=== PATIENT | female | born 1995 | race Caucasian/White ===

== ENCOUNTER 2016-11-21 23:25 | Outpatient (CLI) | payer MEDICAID, OTHER ==
[~2016-11-21] VITALS: Ht 172.7 cm; Wt 79.5 kg
[~2016-11-21 23:25] MED LIST: CALC-600 PO; FERR-18 PO; PREN-39 PO
[2016-11-21 23:37] VITALS: BP 135/88; PULSE 56; RESP 18
[2016-11-21 23:50] VITALS: Ht 172.7 cm; Wt 79.5 kg
--- NOTE | 2016-11-22 01:34 | RADRPT ---
PROCEDURE: ULTRASOUND BIOPHYSICAL PROFILE CLINICAL INDICATION: 21-year-old female for viability. TECHNIQUE: Multiple sonographic images were obtained in order to perform a biophysical profile The images were reviewed on a PACS workstation. COMPARISON: None. FINDINGS: There is a single viable intrauterine gestation. There is a vertex presentation. Cardiac activity i s present at 131 beats per minute. The placenta is anterior. The results of the biophysical profile are as follows: breathing movement = 2/2 Gross body movement = 2/2 tone = 2/2 Qualitative amniotic fluid volume = 2/2 Amniotic fluid index equals 13.5 cm. This yields a biophysical profile score of 8/8. IMPRESSION: Biophysical profile score is 8/8. .Pritesh Fuller MD, Date Time Electronically viewed and signed by .Pritesh Fuller MD, MD on 11/22/2016 01:34 .M/
--- NOTE | 2016-11-22 04:09 | PN ---
Triage Information Date/Time 21-year-old with IUP at 40 weeks and 2 days with care with Dr. Hay jessica presented with complaint of uterine contractions. GAVI November 20 x 10 weeks ultrasound. She denies any leaking of fluid, vaginal bleeding or decreased movement. Weeks of Gestation 40 weeks and 2 days : 4 Para: 2 Diabetes: none Hypertention: none Objective Vital Signs Date Time Temp Pulse Resp B/P Pulse Ox O2 Delivery O2 Flow Rate FiO2 11/21/16 23:37 97.8 56 18 135/88 Room Air Exam General appearance: Alert and oriented 4 patient does not appear to be in any acute distress. Abdomen: Soft, nontender, gravid, fundal height consistent with gestational age. NST: Category 1 Sterile vaginal examination: 0.5/0/-4 Patient had been observed and ambulated after couple hours no cervical change noted. Results/Medications Imaging Results PROCEDURE: ULTRASOUND BIOPHYSICAL PROFILE CLINICAL INDICATION: 21-year-old female for viability. TECHNIQUE: Multiple sonographic images were obtained in order to perform a biophysical profile The images were reviewed on a PACS workstation. COMPARISON: None. FINDINGS: There is a single viable intrauterine gestation. There is a vertex presentation. Cardiac activity is present at 131 beats per minute. The placenta is anterior. The results of the biophysical profile are as follows: breathing movement = 2/2 Gross body movement = 2/2 tone = 2/2 Qualitative amniotic fluid volume = 2/2 Amniotic fluid index equals 13.5 cm. This yields a biophysical profile score of 8/8. IMPRESSION: Biophysical profile score is 8/8. Assessment/Plan IUP at 40 weeks and 2 days Postdates testing reassuring Unfavorable cervix False labor pain Patient will be discharged home Labor precaution and kick count discussed Follow-up with her OB clinic in 1-2 days recommend with the plan of delivery at 41 weeks Understand that needs to have testing twice a week until 41 weeks Patient verbalized understanding. All questions were answered. AICHA BEYER MD Nov 22, 2016 04:09
--- NOTE | 2016-11-22 05:25 | TRIAGE ---
OB Triage Datetime Report Generated by CPN: 11/22/2016 05:25 Datetime: 11/22/2016 04:09 Labor Evaluation Frequency: 8; OCCASSIONAL Monitor Mode: External Duration (sec)2399: 60-80 Quality: Mild Resting Tone [place]: Relaxed Interventions: Side to Side Heart Rate FHR Baseline Rate: 115 Monitor Mode: External US FHR Baseline Changes: No Baseline Change Variability: Moderate 6-25 bpm Accelerations: 15X15 Decelerations: None Category: Category I Datetime: 11/22/2016 04:04 Pain Assessment Pain Scale: 0 Pain Presence: None/Denies Pain Type: N/A Pain Goal: 0 Datetime: 11/22/2016 03:14 Vaginal Exam Dilatation (cms): 0.5 Effacement (%): 20 Station: -4 Exam By: MG Cervix, Position: Posterior Datetime: 11/22/2016 02:30 Pain Assessment Pain Scale: 5 Pain Presence: Intermittent Pain Type: Contraction Pain Location: Abdomen Pain Goal: 5 Pain Assessment Comments: PT STATES THAT CONTRACTION FREQUENCY AND PAIN LEVEL HAS DECREASED SINCE WHEN SHE WAS FIRST ADMITTED. Datetime: 11/22/2016 02:06 Comments: PT CONTINUES TO AMBULATE IN HALLWAY; APPEARS STABLE. Datetime: 11/22/2016 01:06 Labor Evaluation Frequency: 3-7.5 Monitor Mode: External Duration (sec)2399: 60-120 Quality: Mild Pattern: Normal: <= 5 Contractions in 10 Minutes Resting Tone [place]: Relaxed Heart Rate FHR Baseline Rate: 115 Monitor Mode: External US FHR Baseline Changes: No Baseline Change Variability: Moderate 6-25 bpm Accelerations: 15X15 Decelerations: None Category: Category I Comments: Periods of loss of FHR contact d/t pt self-repositioning; bedside ultrasound during this interval. Datetime: 11/22/2016 00:11 Pain Assessment Pain Scale: 4 Pain Presence: Intermittent Pain Type: Contraction Pain Location: Abdomen Pain Goal: 4 Pain Relief Measures: Comfort Measures Datetime: 11/22/2016 00:06 Labor Evaluation Frequency: 4-7.5 Monitor Mode: External Duration (sec)2399: 60-120 Quality: Mild Pattern: Normal: <= 5 Contractions in 10 Minutes Resting Tone [place]: Relaxed Heart Rate FHR Baseline Rate: 115 Monitor Mode: External US FHR Baseline Changes: No Baseline Change Variability: Moderate 6-25 bpm Accelerations: 15X15 Decelerations: None Category: Category I Datetime: 11/21/2016 23:57 Vaginal Exam Dilatation (cms): 0.5 Effacement (%): 0 Station: -4 Exam By: MG Cervix, Position: Posterior Datetime: 11/21/2016 23:46 EGA: 40.1 Datetime: 11/21/2016 23:37 Temperature Route: Oral Pain Assessment Pain Scale: 8 Pain Presence: Intermittent Pain Type: Contraction Pain Location: Abdomen Pain Goal: 4 Pain Relief Measures: Comfort Measures Datetime: 11/21/2016 23:36 Stage of : OB Triage Datetime: 11/21/2016 23:35 Assessment Type: Triage Maternal Assessment Level of Consciousness: Fully Conscious DTR's/Clonus: DTRs 2+; No Clonus Headache: Denies Blurred Vision: No Respiratory Effort: Unlabored; Regular Rhythm; Equal Expansion Breath Sounds, Left: Clear and Equal Breath Sounds, Right: Clear and Equal Nausea/Vomiting: Denies RUQ Epigastric Pain: Denies Facial Edema: None Fall Risk Assessment History of Falling: (0) No Secondary Diagnosis: (0) No Ambulatory Aid: (0) Bedrest/Nurse Assist IV Therapy: (0) No Gait: (0) Normal/Bedrest/Immobile Mental Status: (0) Oriented to Own Ability Fall Score: 0 Fall Risk Score Definition: No Risk: No action required Datetime: 11/21/2016 23:23 Time of Arrival: 11/21/2016 23:23 Arrived By: Wheelchair Arrived From: Emergency Dept Chief Complaint: UCs SINCE 11/21 @ 2200, Q10 MIN Movement: Present Contractions: Occasional Time Contractions Began: 11/21/2016 22:00 Contractions: q10min Rupture of Membranes: Denies Vaginal Bleeding: None Vaginal Discharge: Denies Recent Sexual Intercouse: Denies Abdominal Trauma: Not Applicable Patient Complaints: Contractions Additional Patient Complaints: ANEMIA PER RECORD Time Provider Notified: 11/22/2016 00:09 Provider Notified: MD LOPEZ Initial Plan: OBSERVATION; VE; RONN/BPP; PO HYDRATION; AMBULATE FOR 2 HOURS; AND REASSESS VE
== END 2016-11-22 04:39 | disposition home or self-care (01) ==
LOC: L-D 23:25 → OBT 23:25
PROVIDERS: ATTEND Specialist
DX: O48.0 Post-term pregnancy (principal); O47.1 False labor at or after 37 completed weeks of gestation; Z3A.40 40 weeks gestation of pregnancy
CPT/HCPCS: 76818

== ENCOUNTER 2016-11-22 15:00 | Inpatient (IN) | payer OTHER ==
[~2016-11-22] VITALS: Ht 172.7 cm; Wt 80.0 kg
[2016-11-22] MEDS ORDERED: LACTATED RINGER'S 1,000 ML IV PRN (15:30)
[2016-11-22] MEDS: LACTATED RINGER'S 1,000 ML IV SCH ×2 (15:52→22:50)
[2016-11-22 15:55] LABS: ADD SCAN DIFF NO
[2016-11-22 15:59] LABS: BASOPHILS % 0.2 % (0.0-2.0); EOSINOPHILS % 0.2 % (0.0-7.0); HEMATOCRIT 28.2 % (37.0-47.0); HEMOGLOBIN 9.1 g/dl (12.0-16.0); LYMPHOCYTES # 1.6 10^3/ul (0.8-2.9); LYMPHOCYTES % 26.2 % (15.0-51.0); MEAN CORPUSCULAR HEMOGLOBIN 26.1 pg (29.0-33.0); MEAN CORPUSCULAR HGB CONC 32.3 g/dl (32.0-37.0); MEAN CORPUSCULAR VOLUME 80.8 fl (82.0-101.0); MEAN PLATELET VOLUME 12.3 fl (7.4-10.4); MONOCYTE # 0.5 10^3/ul (0.3-0.9); MONOCYTES % 7.4 % (0.0-11.0); NEUTROPHILS % 65.7 % (39.0-77.0); PLATELET COUNT 149 10^3/UL (140-415); RED BLOOD COUNT 3.49 10^6/ul (4.20-5.40); RED CELL DISTRIBUTION WIDTH 19.3 % (11.5-14.5); WHITE BLOOD COUNT 6.1 10^3/ul (4.8-10.8)
[2016-11-22] MEDS ORDERED: OXYCODONE/ACETAMINOPHEN (5/325) TAB PO PRN (16:00)
[2016-11-22] MEDS ORDERED: LIDOCAINE 1% (MPF) 30 ML INJ INJ PRN (16:00)
[2016-11-22] MEDS ORDERED: ACETAMINOPHEN/CODEINE #3 TAB PO PRN (16:00)
[2016-11-22] MEDS ORDERED: BUTORPHANOL 2 MG INJ IV PRN (16:00)
[2016-11-22] MEDS ORDERED: CARBOPROST 250 MCG INJ IM PRN (16:00)
[2016-11-22] MEDS ORDERED: METHYLERGONOVINE 0.2 MG INJ IM PRN (16:00)
[2016-11-22] MEDS ORDERED: OXYTOCIN 30 UNITS/LR 500 ML IV PRN (16:00)
[2016-11-22] MEDS ORDERED: IBUPROFEN 600 MG TAB PO PRN (16:00)
[2016-11-22] MEDS ORDERED: OXYTOCIN 30 UNITS/LR 500 ML IV SCH ×2 (16:00)
[2016-11-22] MEDS ORDERED: MISOPROSTOL 200 MCG TAB PR PRN (16:00)
[2016-11-22] MEDS ORDERED: OXYCODONE/ASPIRIN (4.88/325) TAB PO PRN (16:00)
[2016-11-22 16:04] VITALS: Ht 172.7 cm; Wt 80.0 kg
[2016-11-22 16:05] VITALS: BP 131/85; PULSE 71; RESP 20
[2016-11-22 16:18] LABS: INR 0.91; PROTIME 12.2 Sec (12.2-14.2)
[2016-11-22 16:19] LABS: PARTIAL THROMBOPLASTIN TIME 28.7 Sec (25.0-35.0)
[2016-11-22] MEDS ORDERED: DINOPROSTONE 10 MG VAG SUPP VAG ONE (21:00)
[2016-11-22] MEDS ORDERED: hydrALAzine 20 MG INJ IV PRN (22:30)
[2016-11-22 22:57] LABS: ADD SCAN DIFF NO
[2016-11-22 23:01] LABS: BASOPHILS % 0.2 % (0.0-2.0); EOSINOPHILS % 0.3 % (0.0-7.0); HEMATOCRIT 30.1 % (37.0-47.0); HEMOGLOBIN 9.4 g/dl (12.0-16.0); LYMPHOCYTES # 2.1 10^3/ul (0.8-2.9); LYMPHOCYTES % 35.8 % (15.0-51.0); MEAN CORPUSCULAR HEMOGLOBIN 25.7 pg (29.0-33.0); MEAN CORPUSCULAR HGB CONC 31.2 g/dl (32.0-37.0); MEAN CORPUSCULAR VOLUME 82.2 fl (82.0-101.0); MEAN PLATELET VOLUME 11.8 fl (7.4-10.4); MONOCYTE # 0.6 10^3/ul (0.3-0.9); MONOCYTES % 9.6 % (0.0-11.0); NEUTROPHIL # 3.1 10^3/ul (1.6-7.5); NEUTROPHILS % 53.8 % (39.0-77.0); PLATELET COUNT 136 10^3/UL (140-415); RED BLOOD COUNT 3.66 10^6/ul (4.20-5.40); RED CELL DISTRIBUTION WIDTH 19.3 % (11.5-14.5); WHITE BLOOD COUNT 5.7 10^3/ul (4.8-10.8)
[2016-11-22 23:03] LABS: ADD UMIC YES; URINE BILIRUBIN (Dip) NEGATIVE (NEGATIVE); URINE BLOOD (Dip) TRACE (NEGATIVE); URINE COLOR LT. YELLOW (YELLOW); URINE GLUCOSE (Dip) NEGATIVE (NEGATIVE); URINE KETONES (Dip) TRACE (NEGATIVE); URINE LEUKOCYTE ESTERASE (Dip) 3+ (NEGATIVE); URINE NITRITE (Dip) POSITIVE (NEGATIVE); URINE TOTAL PROTEIN (Dip) TRACE (NEGATIVE); URINE UROBILINOGEN (Dip) 0.2 E.U./dL (0.1-1.0)
[2016-11-22 23:13] LABS: BACTERIA,URINE MANY; SQUAMOUS EPITHELIAL CELL,UR FEW; URINE RBCS 0-2 /HPF (0)
[2016-11-22 23:16] LABS: INR 0.94; PARTIAL THROMBOPLASTIN TIME 29.5 Sec (25.0-35.0); PROTIME 12.6 Sec (12.2-14.2)
[2016-11-22 23:24] LABS: ALBUMIN 3.8 g/dl (3.3-4.9); ALBUMIN/GLOBULIN RATIO 1.26; BILIRUBIN,INDIRECT 0.2 mg/dl (0-1.1); BILIRUBIN,TOTAL 0.2 mg/dl (0.2-1.3); CREATININE 0.75 mg/dl (0.44-1.00); POTASSIUM 3.9 mmol/L (3.5-5.1); TOTAL PROTEIN 6.8 g/dl (6.1-8.1)
[2016-11-22] MEDS ORDERED: FENTAnyl 2MCG/ML-ROPIV 0.2% 100 ML ONE (23:38)
[2016-11-23] VITALS (7 sets, daily range): BP systolic 114–136; BP diastolic 65–93; PULSE 50–74; RESP 15–20
[2016-11-23] MEDS ORDERED: PROCHLORPERAZINE 10 MG INJ IV PRN
[2016-11-23] MEDS ORDERED: KETOROLAC 30 MG INJ IV PRN
[2016-11-23] MEDS ORDERED: ONDANSETRON 4 MG INJ IV PRN
[2016-11-23] MEDS ORDERED: HYDROmorphONE 1 MG/ML SYG IV PRN ×2
[2016-11-23] MEDS ORDERED: FENTAnyl 2MCG/ML-ROPIV 0.2% 100 ML BAG EPI SCH
[2016-11-23] MEDS ORDERED: DIPHENHYDRAMINE 50 MG INJ IV PRN
[2016-11-23] MEDS ORDERED: NALOXONE (0.4 MG/ML) INJ IV PRN
--- NOTE | 2016-11-23 00:07 | HP ---
Date/Time of Note Date/Time of Note DATE: 11/22/16 TIME: 23:57 OB - History Hx of Present Free Text/Dictation 21 y.o A1(iab) at 40w 2d ,here for induction of labor using cervidil. she was here on 11/21/16 with uterine contractions but sent home . VE on admission 1/60%/-3 EFM mod accelerations course was unevenful. Chief Complaint: induction of labor Last Menstrual Period: Feb 04, 2016 Estimated Due Date: Nov 20, 2016 : 4 Para: 2 Spontaneous : 0 Therapeutic : 1 Care: Good Care Ultrasounds: Normal mid trimester US Obstetrical Complications: None Medical Complications: None Past Family/Social History * Past Medical, Surgical, Family and Obstetric Histories reviewed from chart. Blood Type: A+ Rubella: immune RPR/VDRL: Negative GBS Status: Negative HBsAG: Negative OB Admission Exam Vital Signs Vital Signs Vital Signs Date Time Temp Pulse Resp B/P Pulse Ox O2 Delivery O2 Flow Rate FiO2 11/22/16 16:05 98.2 71 20 131/85 Room Air Physical Exam HEENT: WNL Heart: Rhythm Normal Lungs: Clear, Equal Abdomen: WNL Extremities: Normal Reflexes: Normal Cervical Dilatation: 1cm Effacement: Other (60% -3) Station: -3 Membranes: Intact Amniotic Fluid: Unevaluable Heart Rate: 120's Accelerations: Accelerations Present Decelerations: No Decelerations Varibility: Moderate Contractions on Admission: < 5 Minutes Apart Intensity: Mild Last 72 hours Lab Results CBC & BMP 11/22/16 15:35 11/22/16 22:29 Liver Function Test 11/22/16 22:29 Alanine Aminotransferase (ALT/SGPT) 25 Albumin 3.8 Alkaline Phosphatase 168 H Aspartate Amino Transf (AST/SGOT) 21 Direct Bilirubin 0.00 Total Protein 6.8 OB Assessment/Plan Reason for admission: induction of labor Plan: Induction Induction Method: per Misoprostol Protocol WINSTON FROST MD Nov 23, 2016 00:07
--- NOTE | 2016-11-23 00:10 | QN ---
Documentation Comment delayed insertion of cervidil at 2100 reson ? VE 6cm membrane bulging cervidil was removed 0 still having frequent uc 2-3min WINSTON Moreno MD Nov 23, 2016 00:10
--- NOTE | 2016-11-23 00:59 | LDN ---
Date/Time of Note Date/Time of Note DATE: 11/23/16 TIME: 00:56 Delivery Summary 21 YO G4 P 2 with post date IUP who was admitted for IOL progressed very fast to 10 cm. she pushed 2 times. s/p of viable male infant. Placenta Delivered: Spontaneously Meconium: none Episiotomy: No Perineal laceration: 0 Laceration repair: no laceration Anesthesia type: Epidural Sponge & Needle done & correct: Yes All needle counts correct: Yes Any foreign bodies felt in the: No Problems: Delivery Information Sex Sex: male Apgars 1 Minute: 9 5 Minute: 9 Suctioning Nose & mouth suctioned at sia: No Delee suction performed: No Umbilical Cord Umbilical cord with: 3 Vessels Cord presentations: nuchal cord Nuchal cord present X: 1 Cord Blood was obtained: Yes Mother & Baby Disposition Disposition Mom & Baby to Maternity; Good: Yes TONY LOPEZ MD Nov 23, 2016 00:59
[2016-11-23] MEDS ORDERED: WITCH HAZEL/GLYCERIN PAD PR PRN (01:00)
[2016-11-23] MEDS ORDERED: SENNA/DOCUSATE NA (8.6MG/50MG) TAB PO PRN (01:00)
[2016-11-23] MEDS ORDERED: NA PHOSPHATE/BIPHOS 133 ML ENEMA PR PRN (01:00)
[2016-11-23] MEDS ORDERED: LANOLIN 7 GM TUBE TOP PRN (01:00)
[2016-11-23] MEDS ORDERED: MISOPROSTOL 200 MCG TAB PR PRN (01:00)
[2016-11-23] MEDS ORDERED: MAGNESIUM HYDROXIDE 30ML CUP PO PRN (01:00)
[2016-11-23] MEDS ORDERED: OXYTOCIN 30 UNITS/LR 500 ML IV PRN (01:00)
[2016-11-23] MEDS ORDERED: CARBOPROST 250 MCG INJ IM PRN (01:00)
[2016-11-23] MEDS ORDERED: DIBUCAINE 1% 30 GM OINT PR PRN (01:00)
[2016-11-23] MEDS ORDERED: BENZOCAINE 20% 56 ML SPRAY TOP PRN (01:00)
[2016-11-23] MEDS: LACTATED RINGER'S 1,000 ML IV* SCH ×2 (05:51→19:25)
[2016-11-23] MEDS ORDERED: SENNA/DOCUSATE NA (8.6MG/50MG) TAB PO SCH (09:00)
[2016-11-23] MEDS: IBUPROFEN 600 MG TAB PO SCH ×4 (09:29→23:49)
[2016-11-24] MEDS ORDERED: ONDANSETRON 4 MG INJ IV PRN
[2016-11-24] MEDS ORDERED: ONDANSETRON 4 MG TAB PO PRN
[2016-11-24] MEDS ORDERED: ACETAMINOPHEN/CODEINE #3 TAB PO PRN ×2
[2016-11-24] MEDS ORDERED: DIPHENHYDRAMINE 50 MG INJ IV PRN
[2016-11-24] MEDS ORDERED: DIPHENHYDRAMINE 25 MG CAP PO PRN
[2016-11-24] MEDS: LACTATED RINGER'S 1,000 ML IV* SCH (00:59)
[2016-11-24 03:40] VITALS: BP 109/73; PULSE 69; RESP 19
[2016-11-24] MEDS: IBUPROFEN 600 MG TAB PO SCH ×4 (05:45→23:57)
[2016-11-24 08:13] LABS: ADD SCAN DIFF NO
[2016-11-24 08:14] VITALS: BP 113/84; PULSE 66; RESP 18
[2016-11-24 08:17] LABS: BASOPHILS % 0.4 % (0.0-2.0); EOSINOPHILS # 0.1 10^3/ul (0.0-0.5); EOSINOPHILS % 1.2 % (0.0-7.0); HEMATOCRIT 26.2 % (37.0-47.0); HEMOGLOBIN 7.8 g/dl (12.0-16.0); LYMPHOCYTES % 34.6 % (15.0-51.0); MEAN CORPUSCULAR HEMOGLOBIN 24.9 pg (29.0-33.0); MEAN CORPUSCULAR HGB CONC 29.8 g/dl (32.0-37.0); MEAN CORPUSCULAR VOLUME 83.7 fl (82.0-101.0); MEAN PLATELET VOLUME 12.2 fl (7.4-10.4); MONOCYTE # 0.4 10^3/ul (0.3-0.9); MONOCYTES % 7.7 % (0.0-11.0); NEUTROPHIL # 3.2 10^3/ul (1.6-7.5); NEUTROPHILS % 55.7 % (39.0-77.0); PLATELET COUNT 132 10^3/UL (140-415); RED BLOOD COUNT 3.13 10^6/ul (4.20-5.40); RED CELL DISTRIBUTION WIDTH 19.7 % (11.5-14.5); WHITE BLOOD COUNT 5.7 10^3/ul (4.8-10.8)
--- NOTE | 2016-11-24 15:41 | PN ---
Date/Time of Note Date/Time of Note DATE: 11/24/16 TIME: 15:39 OB Subjective Subjective Subjective day 1 status post OB Objective Objective Objective Patient has no complaints Ambulating and tolerating regular diet well HEENT: WNL Heart: Rhythm Normal Lungs: Clear, Equal Abdomen: WNL Extremities: Normal Reflexes: Normal OB Assessment/Plan Other Assessment: day 1 status post Patient stable and afebrile Other plan: Continue with present management Repeat CBC in VONDA Camacho MD Nov 24, 2016 15:41
[2016-11-24 16:01] VITALS: BP 126/86; PULSE 83; RESP 18
[2016-11-24 19:35] VITALS: BP 122/80; PULSE 69; RESP 19
[2016-11-25 03:30] VITALS: BP 110/81; PULSE 64; RESP 18
[2016-11-25] MEDS: IBUPROFEN 600 MG TAB PO SCH ×2 (05:25→12:00)
[2016-11-25 07:13] LABS: ADD SCAN DIFF NO
[2016-11-25 07:18] LABS: BASOPHILS % 0.3 % (0.0-2.0); EOSINOPHILS # 0.1 10^3/ul (0.0-0.5); EOSINOPHILS % 1.1 % (0.0-7.0); HEMOGLOBIN 8.4 g/dl (12.0-16.0); LYMPHOCYTES # 2.3 10^3/ul (0.8-2.9); LYMPHOCYTES % 36.7 % (15.0-51.0); MEAN CORPUSCULAR HEMOGLOBIN 25.7 pg (29.0-33.0); MEAN CORPUSCULAR HGB CONC 31.1 g/dl (32.0-37.0); MEAN CORPUSCULAR VOLUME 82.6 fl (82.0-101.0); MEAN PLATELET VOLUME 11.1 fl (7.4-10.4); MONOCYTE # 0.5 10^3/ul (0.3-0.9); MONOCYTES % 7.8 % (0.0-11.0); NEUTROPHIL # 3.4 10^3/ul (1.6-7.5); NEUTROPHILS % 53.8 % (39.0-77.0); PLATELET COUNT 147 10^3/UL (140-415); RED BLOOD COUNT 3.27 10^6/ul (4.20-5.40); RED CELL DISTRIBUTION WIDTH 19.3 % (11.5-14.5); WHITE BLOOD COUNT 6.4 10^3/ul (4.8-10.8)
[2016-11-25 08:41] VITALS: BP 122/77; PULSE 65; RESP 18
[2016-11-25] MEDS ORDERED: MEASLES,MUMPS,RUBELLA VACCINE INJ SC* ONE (09:00)
[2016-11-25] MEDS ORDERED: DIPHTH/TET/ACEL PERTUSS (ADULT) 0.5 ML VIAL IM* ONE (09:00)
[2016-11-25] MEDS ORDERED: VARICELLA VACCINE LIVE/PF 1,350 UNIT/0.5 ML ML SC* ONE (09:00)
--- NOTE | 2016-11-25 12:21 | DS ---
Date/Time of Note Date/Time of Note DATE: 11/25/16 TIME: 12:21 Obstetrical Discharge Record Final Diagnosis Final Diagnosis: Term delivered Vaginal Delivery Obstetrical Delivery: Spontaneous Condition on Discharge Physical Assessment Voiding: Yes Bowel Movement: Yes Breast: Soft, non-tender Fundus: Firm Calf Tenderness: No Patient Condition: Stable CARRIE RINCON MD Nov 25, 2016 12:21
== END 2016-11-25 15:15 | disposition home or self-care (01) | DRG 775 ==
LOC: L-D 15:06 → PP1 11-23 02:48
PROVIDERS: ADMIT Specialist; ATTEND Specialist
PROC: 10E0XZZ Delivery of Products of Conception, External Approach (ICD-10-PCS; principal; 2016-11-23)
DX: O48.0 Post-term pregnancy (principal); O69.1XX0 Labor and delivery complicated by cord around neck, with compression, not applicable or unspecified; Z3A.40 40 weeks gestation of pregnancy; Z37.0 Single live birth
CPT/HCPCS: 62319; 80053; 81001; 84560; 85025; 85610; 85730; 86592; 86900; 86901; 87340; 90715; 90716; 99464; J0360; J1885; J2590; J3010; J7120

== ENCOUNTER 2018-03-18 20:29 | Inpatient (IN) | END 2018-03-21 12:14 | disposition home or self-care (01) | DRG 807 ==